=== PATIENT | female | born 1980 | race Caucasian/White ===

== ENCOUNTER 2016-06-11 08:40 | Emergency (ER) | payer OTHER ==
[~2016-06-11] VITALS: Ht 170.2 cm; Wt 70.8 kg
[~2016-06-11 08:40] MED LIST: FLUC150T PO
[2016-06-11] MEDS ORDERED: ALBU0.63 IH (08:54)
[2016-06-11 09:07] LABS: *BILIRUBIN,URIN NEGATIVE (NEGATIVE); *BLOOD, URINE NEGATIVE (NEGATIVE); *CLARITY,URINE CLEAR (CLEAR); *COLOR,URINE LIGHT YELLOW (YELLOW); *KETONES,URINE NEGATIVE (NEGATIVE); *PROTEIN,URINE NEGATIVE (NEGATIVE); *UROBILINOGEN,URINE 0.2 E.U./dl (NORMAL); LEUKOCYTE ESTERASE ,URINE NEGATIVE (NEGATIVE); NITRITE, URINE NEGATIVE (NEGATIVE); UGLUCOSE NEGATIVE (NEGATIVE)
[2016-06-11 09:09] LABS: *URINE HCG, QUAL NEGATIVE (NEGATIVE)
[2016-06-11 09:21] LABS: BACTERIA,URINE NONE SEEN /HPF (NONE SEEN); RBC,URINE 0-3 /HPF (0-3); SQUAMOUS EPITHELIAL CELL,UR FEW /HPF (NONE SEEN); WBC,URINE 0-3 /HPF (0-3)
--- NOTE | 2016-06-11 09:34 | NUR ---
Patient discharged to home in stable conditon. Written and verbal after care instructions given to patient. Patient verbalizes understanding of instructions.
== END 2016-06-11 09:36 | disposition home or self-care (01) ==
LOC: ER 08:44
DX: R30.0 Dysuria (principal); Z91.013 Allergy to seafood; J45.909 Unspecified asthma, uncomplicated; K21.9 Gastro-esophageal reflux disease without esophagitis
CPT/HCPCS: 81001; 82962; 84703; 99283; A4663

== ENCOUNTER 2016-09-05 10:00 | Emergency (ER) | payer OTHER ==
[~2016-09-05] VITALS: Ht 167.6 cm; Wt 77.1 kg
[~2016-09-05 10:00] MED LIST changes: +ALBU0.63 IH; -FLUC150T PO
--- NOTE | 2016-09-05 10:18 | NUR ---
PATIENT WAS SEEN BY DR MARTINEZ. URINE SENT TO LAB.
[2016-09-05 10:49] LABS: *BILIRUBIN,URIN NEGATIVE (NEGATIVE); *BLOOD, URINE NEGATIVE (NEGATIVE); *CLARITY,URINE CLEAR (CLEAR); *COLOR,URINE YELLOW (YELLOW); *KETONES,URINE NEGATIVE (NEGATIVE); *PROTEIN,URINE NEGATIVE (NEGATIVE); *URINE HCG, QUAL NEGATIVE (NEGATIVE); *UROBILINOGEN,URINE 0.2 E.U./dl (NORMAL); LEUKOCYTE ESTERASE ,URINE NEGATIVE (NEGATIVE); NITRITE, URINE NEGATIVE (NEGATIVE); UGLUCOSE NEGATIVE (NEGATIVE)
[2016-09-05 11:12] LABS: BACTERIA,URINE FEW /HPF (NONE SEEN); RBC,URINE NONE SEEN /HPF (0-3); SQUAMOUS EPITHELIAL CELL,UR FEW /HPF (NONE SEEN); WBC,URINE NONE SEEN /HPF (0-3)
--- NOTE | 2016-09-05 11:28 | NUR ---
DC AND FOLLOW UP INSTRUCTIONS GIVEN AND EXPLAINED TO PATIENT WHO STATES SHE UNDERSRANDS ALL INSTRUCTIONS.
== END 2016-09-05 11:30 | disposition home or self-care (01) ==
LOC: ER 10:00
DX: R30.0 Dysuria (principal); J45.909 Unspecified asthma, uncomplicated; K21.9 Gastro-esophageal reflux disease without esophagitis; Z91.013 Allergy to seafood
CPT/HCPCS: 84703; 87086; A4663

== ENCOUNTER 2016-11-25 21:30 | Emergency (ER) | payer OTHER ==
[~2016-11-25] VITALS: Ht 170.2 cm; Wt 81.6 kg
[2016-11-25] MEDS ORDERED: IV NORMAL SALINE 1000 ML BAG IV ONE (22:15)
[2016-11-25] MEDS ORDERED: METOCLOPRAMIDE HCL 10 MG/2 ML VIAL IV ONE (22:15)
[2016-11-25] MEDS ORDERED: diphenhydrAMINE 50 MG/1 ML VIAL IV ONE (22:15)
[2016-11-25] MEDS ORDERED: METOCLOPRAMIDE HCL 10 MG/2 ML VIAL ONE (22:39)
[2016-11-25] MEDS ORDERED: diphenhydrAMINE 50 MG/1 ML VIAL ONE (22:39)
[2016-11-25] MEDS ORDERED: LORAZEPAM 2 MG/1 ML VIAL IV ONE (22:45)
[2016-11-25] MEDS ORDERED: LORAZEPAM 2 MG/1 ML VIAL ONE (22:56)
[2016-11-25 23:02] LABS: CREATININE 0.9 mg/dL (0.6-1.3); POTASSIUM 3.5 mmol/L (3.5-5.1)
[2016-11-25 23:03] LABS: BASOPHILS # (AUTO) 0.1 K/uL (0.0-8.0); BASOPHILS % (AUTO) 0.9 % (0.0-2.0); EOSINOPHILS # (AUTO) 0.2 K/uL (0.0-0.7); EOSINOPHILS % (AUTO) 3.3 % (0.0-7.0); HEMATOCRIT 40.5 % (37-47); HEMOGLOBIN 13.8 G/DL (12.0-16.0); LYMPHOCYTES # (AUTO) 2.1 K/UL (0.8-4.8); LYMPHOCYTES % (AUTO) 28.2 % (20.5-51.5); MEAN CORPUSCULAR HEMOGLOBIN 29.8 UUG (27.0-31.0); MEAN CORPUSCULAR HGB CONC 34 g/dL (32.0-37.0); MEAN CORPUSCULAR VOLUME 87.7 FL (81.0-99.0); MONOCYTES # (AUTO) 0.8 K/UL (0.1-1.30); MONOCYTES % (AUTO) 10.3 % (0.0-11.0); NEUTROPHILS # (AUTO) 4.2 K/UL (1.8-8.9); NEUTROPHILS % (AUTO) 57.3 % (38.5-71.5); PLATELET COUNT (AUTO) 174 K/UL (150-450); RED BLOOD CELL COUNT(AUTO) 4.62 MIL/UL (4.2-5.4); WHITE BLOOD COUNT (AUTO) 7.4 K/UL (4.0-11.2)
--- NOTE | 2016-11-25 23:23 | NUR ---
PATIENT RETURNED FROM CT SCAN.
--- NOTE | 2016-11-26 00:30 | NUR ---
Patient does not wish to proceed with medical care recommended by Dr. MARTINEZ. Patient given information related to possible complications, up to and including , which could occur as a result of leaving the hospital at this time. Patient verbalizes understanding of risks involved due to leaving against medical advice. Patient has signed AMA form. PATIENT LEFT WITH STABLE GAIT.
[2016-11-26 00:31] VITALS: BP 106/66
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
== END 2016-11-26 00:32 | disposition left against medical advice (07) ==
LOC: ER 21:31
DX: R51 Headache (principal); K21.9 Gastro-esophageal reflux disease without esophagitis; J45.909 Unspecified asthma, uncomplicated; Z91.013 Allergy to seafood
CPT/HCPCS: 36415; 62270; 70450; 80048; 84703; 85025; 96361; 96374; 96375; 99285; A4663; J1200; J2060; J2765; J7030

== ENCOUNTER 2017-02-12 22:00 | Emergency (ER) | payer OTHER ==
[~2017-02-12] VITALS: Ht 167.6 cm; Wt 81.6 kg
[2017-02-12] MEDS ORDERED: DIPH25CA83 PO (22:16)
[2017-02-12] MEDS ORDERED: TDAP DIPH,PERTUSS,TET VAC/PF 0.5 ML DISP.SYRIN IM ONE ×2 (23:15→23:36)
[2017-02-12] MEDS ORDERED: SILVER SULFADIAZINE 1% CREAM 50 GM TP ONE (23:15)
--- NOTE | 2017-02-12 23:33 | NUR ---
Patient discharged to home in stable conditon. Written and verbal after care instructions given. Patient verbalizes understanding of instructions.
[2017-02-12] MEDS ORDERED: SILVER SULFADIAZINE 1% CREAM 25 GM TUBE TP ONE (23:35)
== END 2017-02-12 23:35 | disposition home or self-care (01) ==
LOC: ER 22:03
DX: T21.21XA Burn of second degree of chest wall, initial encounter (principal); K21.9 Gastro-esophageal reflux disease without esophagitis; Z91.013 Allergy to seafood; J45.909 Unspecified asthma, uncomplicated; X58.XXXA Exposure to other specified factors, initial encounter; Y93.89 Activity, other specified; Y92.89 Other specified places as the place of occurrence of the external cause; Y99.8 Other external cause status
CPT/HCPCS: 16020; 90471; 90715; 99284; A4663

== ENCOUNTER 2017-04-26 08:18 | Emergency (ER) | payer OTHER ==
[~2017-04-26] VITALS: Ht 167.6 cm; Wt 81.6 kg
[~2017-04-26 08:18] MED LIST changes: +DIPH25CA83 PO
[2017-04-26] MEDS ORDERED: INDO50CA PO (08:25)
[2017-04-26] MEDS ORDERED: NAPR500T6 PO (08:25)
--- NOTE | 2017-04-26 08:25 | NUR ---
Dr Adams at the bedside for MSE.
[2017-04-26 08:40] VITALS: BP 139/57
--- NOTE | 2017-04-26 08:40 | NUR ---
Patient discharged to home in stable conditon. Written and verbal after care instructions given. Patient verbalizes understanding of instructions. Pt left ER accompained by family.
== END 2017-04-26 08:40 | disposition home or self-care (01) ==
LOC: ER 08:22
DX: H10.12 Acute atopic conjunctivitis, left eye (principal); G89.29 Other chronic pain; J45.909 Unspecified asthma, uncomplicated; K21.9 Gastro-esophageal reflux disease without esophagitis; Z91.013 Allergy to seafood
CPT/HCPCS: A4663

== ENCOUNTER 2017-04-27 21:19 | Emergency (ER) | payer OTHER ==
[~2017-04-27] VITALS: Ht 167.6 cm; Wt 77.1 kg
[~2017-04-27 21:19] MED LIST changes: +INDO50CA PO; +NAPR500T6 PO
--- NOTE | 2017-04-27 23:42 | NUR ---
MARILEE WORTHY AT BEDSIDE FOR MSE.
[2017-04-28] MEDS ORDERED: MORPHINE SULFATE 4 MG/1 ML DISP.SYRIN IM ONE
[2017-04-28] MEDS ORDERED: MAG HYDROX/AL HYDROX/SIMETH 30 ML LIQUID UDC PO ONE
[2017-04-28] MEDS ORDERED: ONDANSETRON 4 MG/2 ML VIAL IM ONE
[2017-04-28] MEDS ORDERED: MORPHINE SULFATE 4 MG/1 ML DISP.SYRIN ONE (00:24)
[2017-04-28] MEDS ORDERED: MAG HYDROX/AL HYDROX/SIMETH 30 ML LIQUID UDC ONE (00:24)
[2017-04-28] MEDS ORDERED: ONDANSETRON 4 MG/2 ML VIAL ONE (00:24)
--- NOTE | 2017-04-28 00:39 | NUR ---
Patient discharged to home in stable conditon. Written and verbal after care instructions given. Patient verbalizes understanding of instructions. Pt ambulated from ER w/ steady gait. No signs of distress noted. Accompanied by significant other. All personal belongings taken w/ patient.
[2017-04-28 01:08] VITALS: BP 114/82
== END 2017-04-28 01:09 | disposition home or self-care (01) ==
LOC: ER 21:20
DX: M54.41 Lumbago with sciatica, right side (principal); M54.42 Lumbago with sciatica, left side; K21.9 Gastro-esophageal reflux disease without esophagitis; J45.909 Unspecified asthma, uncomplicated; Z91.013 Allergy to seafood
CPT/HCPCS: A4663; J2270; J2405

== ENCOUNTER 2017-07-02 07:35 | Emergency (ER) | payer OTHER ==
[~2017-07-02] VITALS: Ht 167.6 cm; Wt 74.8 kg
[~2017-07-02 07:35] MED LIST changes: -INDO50CA PO; +INDO50CA2 PO
--- NOTE | 2017-07-02 07:39 | NUR ---
Dr Jamil at the bedside for MSE.
[2017-07-02] MEDS ORDERED: KETOROLAC TROMETHAMINE 30 MG INJ ONE (07:45)
[2017-07-02] MEDS ORDERED: KETOROLAC TROMETHAMINE 30 MG INJ IM ONE (07:45)
--- NOTE | 2017-07-02 07:53 | NUR ---
Patient discharged to home in stable conditon. Written and verbal after care instructions given. Patient verbalizes understanding of instructions. Pt left ER w/ steady gait.
[2017-07-02 07:56] VITALS: BP 119/73
== END 2017-07-02 07:58 | disposition home or self-care (01) ==
LOC: ER 07:35
DX: M54.6 Pain in thoracic spine (principal); J45.909 Unspecified asthma, uncomplicated; K21.9 Gastro-esophageal reflux disease without esophagitis; Z91.013 Allergy to seafood; Z79.1 Long term (current) use of non-steroidal anti-inflammatories (NSAID); Z79.899 Other long term (current) drug therapy
CPT/HCPCS: 96372; 99283; A4663; J1885

== ENCOUNTER 2018-05-10 08:41 | Emergency (ER) | payer OTHER ==
[~2018-05-10] VITALS: Ht 167.6 cm; Wt 76.2 kg
[~2018-05-10 08:41] MED LIST changes: -INDO50CA2 PO; +INDO50CA91 PO
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
[2018-05-10] MEDS ORDERED: HYDROCODONE/APAP 5-325MG TABLET PO ONE (09:00)
[2018-05-10] MEDS ORDERED: CYCLOBENZAPRINE HCL 10 MG TABLET PO ONE (09:00)
[2018-05-10] MEDS ORDERED: ONDANSETRON ODT 4 MG TAB.RAPDIS SL ONE (09:00)
[2018-05-10] MEDS ORDERED: KETOROLAC TROMETHAMINE 30 MG INJ IM ONE (09:00)
[2018-05-10] MEDS ORDERED: CYCLOBENZAPRINE HCL 10 MG TABLET ONE (09:06)
[2018-05-10] MEDS ORDERED: ONDANSETRON ODT 4 MG TAB.RAPDIS ONE (09:06)
[2018-05-10] MEDS ORDERED: KETOROLAC TROMETHAMINE 30 MG INJ ONE (09:07)
[2018-05-10] MEDS ORDERED: HYDROCODONE/APAP 5-325MG TABLET ONE (09:07)
[2018-05-10 09:20] LABS: *URINE HCG, QUAL NEGATIVE (NEGATIVE)
--- NOTE | 2018-05-10 09:43 | NUR ---
MARILEE WORTHY AT BEDSIDE FOR PT UPDATE.
[2018-05-10 10:03] VITALS: BP 112/72
--- NOTE | 2018-05-10 10:03 | NUR ---
Patient discharged to home in stable conditon. Written and verbal after care instructions given. Patient verbalizes understanding of instructions. ALL BELONGINGS W/ PT. PT SELF-AMBULATED W/O DIFFICULTY. PT STATES SHE WILL BE DRIVEN HOME BY SPOUSE IN PRIVATE VEHICLE.
== END 2018-05-10 10:05 | disposition home or self-care (01) ==
LOC: ER 08:43
DX: G89.29 Other chronic pain (principal); M54.5 Low back pain; J45.909 Unspecified asthma, uncomplicated; K21.9 Gastro-esophageal reflux disease without esophagitis; Z91.013 Allergy to seafood; Z79.1 Long term (current) use of non-steroidal anti-inflammatories (NSAID); Z79.899 Other long term (current) drug therapy
CPT/HCPCS: 84703; 96372; 99284; J1885; A4663; Q0162

== ENCOUNTER 2018-07-28 08:29 | Emergency (ER) | payer OTHER ==
[~2018-07-28] VITALS: Ht 167.6 cm; Wt 76.2 kg
--- NOTE | 2018-07-28 09:12 | NUR ---
at bedside for MSE.
[2018-07-28] MEDS ORDERED: KETOROLAC TROMETHAMINE 60 MG INJ IM ONE ×2 (09:30→09:31)
--- NOTE | 2018-07-28 09:35 | NUR ---
Patient discharged to home in stable conditon with family. Written and verbal after care instructions given. Patient verbalizes understanding of instructions.
== END 2018-07-28 09:35 | disposition home or self-care (01) ==
LOC: ER 08:29
DX: G89.29 Other chronic pain (principal); M54.5 Low back pain; J45.909 Unspecified asthma, uncomplicated; K21.9 Gastro-esophageal reflux disease without esophagitis; Z91.013 Allergy to seafood; Z79.1 Long term (current) use of non-steroidal anti-inflammatories (NSAID); Z79.899 Other long term (current) drug therapy
CPT/HCPCS: 96372; 99283; J1885; A4663

== ENCOUNTER 2018-10-27 09:31 | Emergency (ER) | payer OTHER ==
[~2018-10-27] VITALS: Ht 167.6 cm; Wt 79.4 kg
[2018-10-27] MEDS ORDERED: CYCL5TAB PO (09:41)
[2018-10-27] MEDS ORDERED: PROAIR (09:41)
[2018-10-27] MEDS ORDERED: MYLANTA (09:41)
--- NOTE | 2018-10-27 10:43 | NUR ---
Dr. Paris at the bedside for MSE.
[2018-10-27] MEDS ORDERED: KETOROLAC TROMETHAMINE 30 MG INJ IM ONE (10:45)
[2018-10-27] MEDS ORDERED: KETOROLAC TROMETHAMINE 30 MG INJ ONE (10:52)
--- NOTE | 2018-10-27 10:56 | NUR ---
Patient discharged to home in stable conditon. Written and verbal after care instructions given. Patient verbalizes understanding of instructions.
== END 2018-10-27 10:55 | disposition home or self-care (01) ==
LOC: ER 09:31
DX: M54.5 Low back pain (principal); J45.909 Unspecified asthma, uncomplicated; K21.9 Gastro-esophageal reflux disease without esophagitis; Z91.013 Allergy to seafood; Z79.899 Other long term (current) drug therapy
CPT/HCPCS: 96372; 99283; J1885; A4663

== ENCOUNTER 2022-12-06 05:57 | Emergency (ER) | payer OTHER ==
[~2022-12-06 05:57] MED LIST changes: +CYCL5TAB PO; +MYLANTA; +PROAIR
== END 2022-12-06 06:59 | disposition left against medical advice (07) ==
LOC: ER 05:59
DX: Z53.21 Procedure and treatment not carried out due to patient leaving prior to being seen by health care provider (principal)

== ENCOUNTER 2024-11-28 19:40 | Emergency (ER) | payer OTHER ==
[~2024-11-28] VITALS: Ht 167.6 cm; Wt 72.1 kg
[2024-11-28 19:50] VITALS: BP 145/73
[2024-11-28] MEDS ORDERED: ONDANSETRON HCL 4 MG TABLET ONE (20:52)
[2024-11-28] MEDS ORDERED: HYDROMORPHONE 1 MG/1 ML DISP.SYRIN ONE (20:53)
[2024-11-28] MEDS: ONDANSETRON HCL 4 MG TABLET PO ONE (20:58)
[2024-11-28] MEDS: HYDROMORPHONE 1 MG/1 ML DISP.SYRIN IM ONE (20:58)
[2024-11-28 21:08] LABS: *BILIRUBIN,URIN NEGATIVE (NEGATIVE); *BLOOD, URINE TRACE (NEGATIVE); *CLARITY,URINE CLEAR (CLEAR); *COLOR,URINE LIGHT YELLOW (YELLOW); *KETONES,URINE 1+ (NEGATIVE); *PROTEIN,URINE NEGATIVE (NEGATIVE); *UROBILINOGEN,URINE 0.2 E.U./dl (NORMAL); LEUKOCYTE ESTERASE ,URINE NEGATIVE (NEGATIVE); NITRITE, URINE NEGATIVE (NEGATIVE); UGLUCOSE NEGATIVE (NEGATIVE)
[2024-11-28 21:11] LABS: *URINE HCG, QUAL NEGATIVE (NEGATIVE)
[2024-11-28 21:18] LABS: *AMPHETAMINE, URINE NEGATIVE (NEGATIVE); *BARBITURATE, URINE NEGATIVE (NEGATIVE); *BENZODIAZEPINE, URINE NEGATIVE (NEGATIVE); *CANNABINOID, URINE NEGATIVE (NEGATIVE); *COCCAINE, URINE NEGATIVE (NEGATIVE); *OPIATE, URINE NEGATIVE (NEGATIVE); *PHENCYCLIDINE SCREEN,URINE NEGATIVE (NEGATIVE); FENTANYL, URINE NEGATIVE (NEGATIVE)
[2024-11-28 21:48] LABS: SQUAMOUS EPITHELIAL CELL,UR FEW /HPF (NONE SEEN)
[2024-11-28 22:34] VITALS: BP 140/75; O2SAT 99
== END 2024-11-28 21:22 | disposition left against medical advice (07) ==
LOC: ER 19:51
DX: M54.41 Lumbago with sciatica, right side (principal); M54.42 Lumbago with sciatica, left side; J45.909 Unspecified asthma, uncomplicated; Z87.19 Personal history of other diseases of the digestive system; Z88.7 Allergy status to serum and vaccine; Z90.79 Acquired absence of other genital organ(s)
CPT/HCPCS: 99283; 84703; 96372; 80307; 81001; J1171; A4606; A4663; Q0162

== ENCOUNTER 2025-02-22 08:48 | Emergency (ER) | payer OTHER ==
[~2025-02-22] VITALS: Ht 167.6 cm; Wt 71.7 kg
[~2025-02-22 08:48] MED LIST changes: -CYCL5TAB PO; +CYCL5TAB4 PO; +NAPR-1477 PO; -NAPR500T6 PO
[2025-02-22 11:45] VITALS: BP 130/69
[2025-02-22] MEDS ORDERED: methylPREDNISolone ACETATE 40 MG VIAL ONE (12:26)
[2025-02-22] MEDS ORDERED: HYDROMORPHONE 1 MG/1 ML DISP.SYRIN ONE (12:26)
[2025-02-22] MEDS ORDERED: diphenhydrAMINE 50 MG/1 ML VIAL ONE (12:26)
[2025-02-22] MEDS ORDERED: TRAM50TA2 PO (12:29)
[2025-02-22] MEDS: diphenhydrAMINE 50 MG/1 ML VIAL IM ONE (12:38)
[2025-02-22] MEDS: methylPREDNISolone ACETATE 40 MG VIAL IM ONE (12:38)
[2025-02-22] MEDS: HYDROMORPHONE 1 MG/1 ML DISP.SYRIN IM ONE (12:39)
[2025-02-22 13:00] VITALS: BP 130/69; TEMP 208; O2SAT 97
[2025-02-22] MEDS: IV NORMAL SALINE 1000 ML BAG IV ONE (13:06)
== END 2025-02-22 13:03 | disposition home or self-care (01) ==
LOC: ER 08:48
DX: M54.50 Low back pain, unspecified (principal); G89.29 Other chronic pain; J45.909 Unspecified asthma, uncomplicated; Z87.19 Personal history of other diseases of the digestive system; Z88.7 Allergy status to serum and vaccine; Z90.79 Acquired absence of other genital organ(s)
CPT/HCPCS: 99284; 96372 ×2; J1010; J1200; J1171; A4606; A4663